=== PATIENT | female | born 1980 | race Caucasian/White ===

== ENCOUNTER 2019-07-27 15:25 | Outpatient (RCR) | payer BC, SELFPAY | END 2019-07-27 23:59 | disposition home or self-care (01) | LOC: ANHAUDIO 15:25 | DX: Z46.1 Encounter for fitting and adjustment of hearing aid (principal) | CPT/HCPCS: 99199 ==

== ENCOUNTER 2020-01-31 13:04 | Emergency (ER) | payer MEDICAID, SELFPAY ==
[2020-01-31 13:25] VITALS: BP 138/72; PULSE 64; RESP 18; TEMP 37.3; O2SAT 100
--- NOTE | 2020-01-31 13:29 | ED.GENADULT ---
HPI - General Adult General Chief complaint: Urogenital-Female Stated complaint: blood in urine Time Seen by Provider: 01/31/20 13:30 Source: patient and RN notes reviewed Mode of arrival: ambulatory Limitations: no limitations History of Present Illness HPI narrative: 39-year-old female presents with urinary complaints for day. Dysuria consist of hematuria, burning, frequency, and urgency.? Vitamin C and cranberry juice without relief.? History of UTI's. Denies fever or chills. No significant pelvic pain. No vaginal discharge.? No concerns for STDs. Exacerbating factors urinating.? Denies vaginal bleeding. Denies being , LMP 01/09/20.? No flank pain. Intermittent nausea without emesis, none at this time. Denies vomiting and abdominal pain.? Tolerating liquids well.? Remains active. The patient reports she have not been diagnosed with COVID-19. The patient reports she is not waiting for the results of a COVID-19 lab test. The patient reports she do not have fever, chills, weakness, fatigue, myalgia, or facial swelling. The patient reports she do not have a new or worsening cough or shortness of breath. Denies chest pain. The patient reports she do not have any rhinorrhea, congestion, sore throat, vomiting, abdominal pain, and diarrhea. Tolerating po intake well. Denies recent traveling. Denies concerns for COVID-19 or exposures been home since [id number] order except for essential household needs, working, and return home. At this time, patient is not suspected of having COVID-19. Some parts of this dictation were generated by voice recognition software and may contain typographical and/or grammatical inaccuracies. Related Data Home Medications Medication Instructions Recorded Confirmed tramadol 50 mg PO TID PRN 01/31/20 01/31/20 Allergies Allergy/AdvReac Type Severity Reaction Status Date / Time No Known Allergies Allergy Verified 01/31/20 13:24 Review of Systems Review of Systems: Narrative: CONSTITUTIONAL: Denies fever, chills, sweats. EYES: Denies visual changes, redness, discharge. ENT: Denies rhinorrhea, congestion, sore throat, otalgia. CARDIOVASCULAR: Denies chest pain, palpitations, edema. RESPIRATORY: Denies dyspnea, wheezing, cough. GASTROINTESTINAL: Denies abdominal pain, nausea, vomiting, diarrhea. GENITOURINARY: Complains of dysuria (burning, frequency, and urgency), hematuria. Denies abnormal discharge. SKIN: Denies rash or itching. MUSCULOSKELETAL: Denies acute back pain, joint pain, or myalgia. NEUROLOGIC: Denies numbness or focal weakness. PSYCHIATRIC: Denies anxiety or depression. All systems reviewed & are unremarkable except as noted in HPI and below. FORMERLY [facility], [facility] Past Medical History Medical History (Updated 01/31/20 @ 18:01 by IVY Espitia) delivery delivered Golfers elbow of right upper extremity Right shoulder tendinitis UTI (urinary tract infection) Surgical History Surgical History (Updated 01/31/20 @ 18:01 by IVY Espitia) H/O section Family History Family History (Updated 01/31/20 @ 18:01 by IVY Espitia) Father Carcinoma of colon Mother No problems noted. Social History Social History (Updated 01/31/20 @ 18:05 by IVY Espitia) Smoking status: Former smoker Smoking end date: 09/05/09 Alcohol intake: current Substance use: current Substance use type: marijuana Living arrangements: with family Occupation/Education: occupation Gender identity (if verbalized by the patient): Female Comments At time of signature, agree with nurse past medical, surgical, social, and family history.? There is patient's past medical history relevant to presenting complaint and no relevant family history pertinent to the presenting complaint. Exam Narrative: Exam Narrative: GENERAL: This is a well-nourished, well-developed patient, in no apparent distress.? Talks in full sentences an
== END 2020-01-31 13:44 | disposition home or self-care (01) ==
PROVIDERS: Emergency Provider Nurse Practitioner Family; PCP Nurse Practitioner
DX: R30.0 Dysuria (principal); Z87.891 Personal history of nicotine dependence; R03.0 Elevated blood-pressure reading, without diagnosis of hypertension
CPT/HCPCS: 81003; 87086; 87088; 99213; G0463

== ENCOUNTER 2020-02-24 10:39 | Outpatient (CLI) | payer MEDICAID, SELFPAY ==
--- NOTE | ~2020-02-24 | MR_ITS ---
EXAMINATION: MR shoulder RT wo con DATE: 02/24/2020 11:42 INDICATION: Impingement syndrome of the right shoulder presenting with right shoulder pain TECHNIQUE: Magnetic resonance imaging (MRI) of the right shoulder was performed without intravenous c ontrast. Sequences included axial PD-weighted FS FSE, coronal oblique PD-weighted FS FSE, coronal obl ique T2-weighted FS FSE, sagittal PD-weighted FS FSE, and sagittal T1-weighted SE. COMPARISON: None. FINDINGS: Coracoacromial arch: The acromion undersurface is flat in morphology (type I) with anterior downsloping. The coracoacromia l ligament is normal. Acromioclavicular joint is normal. Rotator cuff: Mild infraspinatus tendinopathy without discrete tear. The supraspinatus, teres minor and subscapular is tendons are normal. Normal rotator cuff muscle bulk and signal. Biceps tendon, glenoid labrum and glenohumeral cartilage: Long head of the biceps tendon is normal. 7 x 4 x 4 mm likely Labral cyst along the inferior labrum where there is a tiny focus of increased intrasubstance signal and subtle step-off at the peripheral bone chondral interface consistent with likely labral tear. The re are couple additional small likely paravertebral cyst along the anteroinferior glenoid labrum alth ough no discrete associated labral tears appreciated. Glenohumeral cartilage is normal. Fluid: Physiologic amount of fluid in the glenohumeral joint and biceps tendon sheath. No loose osteochondra l bodies. No abnormal fluid signal in the subacromial/subdeltoid bursa to suggest bursitis. Bones: Normal marrow signal with no edema, fracture or pathologic marrow replacing process. IMPRESSION: 1. A small tear at the inferior glenoid labrum with small para labral cysts along the inferior and an teroinferior glenoid. 2. Mild infraspinatus tendinopathy without discrete tear. Reviewed, dictated and finalized at location A. IMPRESSION: 1. A small tear at the inferior glenoid labrum with small para labral cysts mariano ng the inferior and anteroinferior glenoid. 2. Mild infraspinatus tendinopathy without discrete tear.
== END 2020-02-24 10:40 | disposition home or self-care (01) ==
PROVIDERS: PCP Nurse Practitioner; Visit Provider Orthopaedic Surgery
DX: M75.41 Impingement syndrome of right shoulder (principal); S43.431A Superior glenoid labrum lesion of right shoulder, initial encounter; X58.XXXA Exposure to other specified factors, initial encounter
CPT/HCPCS: 73221

== ENCOUNTER 2021-06-22 09:13 | Emergency (ER) | payer OTHER, SELFPAY ==
[2021-06-22 09:26] VITALS: BP 136/85; PULSE 61; RESP 20; TEMP 37; O2SAT 100
--- NOTE | 2021-06-22 10:00 | ED.SKABFB ---
HPI - Skin/Abscess/Foreign Bdy General Chief complaint: Skin/Abscess/Foreign Body Stated complaint: Bug bite Time Seen by Provider: 06/22/21 10:00 Source: patient and RN notes reviewed Mode of arrival: ambulatory Limitations: no limitations History of Present Illness HPI narrative: 40-year-old female presents concern for a red area on her right thigh. She is not sure if she was bit by a bug or what caused the area. Reports it ly and stings. She denies body aches, chills, sweats, fever. Denies any other rash in any other area of her body. Reports history of staph infections. MD complaint: insect bite/sting Related Data Home Medications Medication Instructions Recorded Confirmed tramadol 50 mg PO TID PRN 01/31/20 01/31/20 Allergies Allergy/AdvReac Type Severity Reaction Status Date / Time No Known Allergies Allergy Verified 01/31/20 13:24 Review of Systems Review of Systems: Proximal CONSTITUTIONAL: Denies malaise, chills, sweats, or fever. CARDIOVASCULAR: Denies chest pain, palpitations, or edema. RESPIRATORY: Denies cough or dyspnea. SKIN: Reports red raised stinging burning area on her right thigh MUSCULOSKELETAL: Denies myalgia. All systems reviewed & are unremarkable except as noted in HPI and below PMFSH Past Medical History Medical History (Updated 06/22/21 @ 10:09 by Shellie Chu NP) delivery delivered Golfers elbow of right upper extremity Right shoulder tendinitis UTI (urinary tract infection) Surgical History Surgical History (Updated 01/31/20 @ 18:01 by IVY Espitia) H/O section Family History Family History (Updated 01/31/20 @ 18:01 by IVY Espitia) Father Carcinoma of colon Mother No problems noted. Social History Social History (Updated 01/31/20 @ 18:05 by IVY Espitia) Smoking status: Former smoker Smoking end date: 09/05/09 Alcohol intake: current Substance use: current Substance use type: marijuana Gender identity (if verbalized by the patient): Female Comments At time of signature, agree with nursing past medical, surgical, social and family history. There is no relevant family history pertinent to the presenting complaint Exam Narrative: GENERAL: Well-appearing, well-nourished, and in no acute distress. HEAD: Normocephalic, atraumatic. EYES: PERRLA, conjunctivae clear ENT: Mucous membranes moist. NECK: Supple. No lymphadenopathy CHEST: Clear to auscultation. No respiratory distress. HEART: Regular rate and rhythm. SKIN: Warm, dry. 8 cm diameter raised erythematous area with a cluster of blisters in the center noted to the right thigh NEURO: Alert and oriented x3. PSYCH: Normal mood and affect Course Course Emergency Course: Patient is aware of diagnosis, understands and agrees to treatment plan. Anticipatory guidance given. Patient agrees to follow-up as directed and is aware of reasons to seek care at the emergency department. Portions of this record may have been created with voice recognition software Vital Signs Vital signs: Vital Signs Temperature 98.6 F 06/22/21 09:26 Pulse Rate 61 06/22/21 09:26 Respiratory Rate 20 06/22/21 09:26 Blood Pressure 136/85 06/22/21 09:26 Pulse Oximetry 100 06/22/21 09:26 Temperature 98.6 F 06/22/21 09:26 Pulse Rate 61 06/22/21 09:26 Respiratory Rate 20 06/22/21 09:26 Blood Pressure 136/85 06/22/21 09:26 Pulse Oximetry 100 06/22/21 09:26 Reviewed. MDM - Skin/Abscess/Foreign Bdy MDM Narrative Medical decision making narrative: Exam findings show no acute concerns or changes; patient is non-toxic appearing and is in no distress. Patient is appropriate for outpatient treatment and follow-up. Differential Diagnosis Differential diagnosis: Likely abscess of skin or subcutaneous tissue, herpes zoster, allergic reaction to drug, cellulitis, eczema, insect bites, impetigo and contact dermatitis Cr
== END 2021-06-22 10:18 | disposition home or self-care (01) ==
PROVIDERS: Emergency Provider Nurse Practitioner; PCP Family Medicine
DX: L08.9 Local infection of the skin and subcutaneous tissue, unspecified (principal); B96.89 Other specified bacterial agents as the cause of diseases classified elsewhere; Z87.891 Personal history of nicotine dependence
CPT/HCPCS: 99213; G0463

== ENCOUNTER 2021-11-04 09:32 | Outpatient (RCR) | payer OTHER, SELFPAY | END 2021-11-04 23:59 | disposition home or self-care (01) | LOC: ANHAUDIO 09:32 | PROVIDERS: PCP Family Medicine; Visit Provider Family Medicine | DX: Z46.1 Encounter for fitting and adjustment of hearing aid (principal) | CPT/HCPCS: 99199 ==

== ENCOUNTER 2022-01-05 13:04 | Outpatient (CLI) | payer OTHER, SELFPAY | END 2022-01-05 13:05 | disposition home or self-care (01) | PROVIDERS: PCP Family Medicine; Visit Provider Family Medicine | DX: H91.93 Unspecified hearing loss, bilateral (principal) | CPT/HCPCS: 92557; 92567 ==

== ENCOUNTER 2022-02-05 10:36 | Emergency (ER) | payer OTHER, SELFPAY ==
--- NOTE | 2022-02-05 10:39 | ED.URI ---
HPI - URI/Sore Throat General Chief Complaint: Upper Respiratory Infection Stated Complaint: sinus issues Time Seen by Provider: 02/05/22 10:39 Source: patient and RN notes reviewed History of Present Illness HPI Narrative: Patient is a 41-year-old female who presents the urgent care with complaints of sinus congestion. Patient denies of cough, sore throat, fever, nausea or vomiting. Patient has been taking Norma and Flonase and states that her symptoms have gotten much better. Patient states that she has had it for approximately 1 week. Patient takes COVID test at work and all have been negative. No other acute complaints. No acute distress noted. Patient aware of the plan of care. Some parts of this dictation were generated by voice recognition software and may contain typographical and/or grammatical inaccuracies. Related Data Home Medications Medication Instructions Recorded Confirmed duloxetine 60 mg capsule,delayed 1 cap PO DAILY 02/05/22 02/05/22 release methocarbamol 500 mg tablet 1 tablet PO TID 02/05/22 02/05/22 Allergies Allergy/AdvReac Type Severity Reaction Status Date / Time No Known Allergies Allergy Verified 02/05/22 10:56 Review of Systems Review of Systems: CONSTITUTIONAL: Denies fever, chills, or sweats. EYES: Denies visual changes, redness, or discharge. ENT: Reports of sinus congestion CARDIOVASCULAR: Denies chest pain, palpitations, or edema. RESPIRATORY: Denies cough or dyspnea. GASTROINTESTINAL: Denies abdominal pain, nausea, vomiting, or diarrhea. GENITOURINARY: Denies dysuria or hematuria. SKIN: Denies rash or itching. MUSCULOSKELETAL: Denies back pain, joint pain, or myalgia. NEUROLOGIC: Denies headache, numbness, or weakness. All other systems reviewed are negative, except as documented in HPI. FORMERLY [facility] Past Medical History Medical History (Updated 02/05/22 @ 11:03 by IVY Montez) delivery delivered Golfers elbow of right upper extremity Right shoulder tendinitis UTI (urinary tract infection) Surgical History Surgical History (Updated 01/31/20 @ 18:01 by IVY Espitia) H/O section Family History Family History (Updated 01/31/20 @ 18:01 by IVY Espitia) Father Carcinoma of colon Mother No problems noted. Social History Social History (Updated 01/31/20 @ 18:05 by IVY Espitia) Smoking status: Former smoker Smoking end date: 09/05/09 Alcohol intake: current Substance use: current Substance use type: marijuana Gender identity (if verbalized by the patient): Female Comments At the time of my signature, I reviewed and agree with the nursing past medical, surgical, social, and family history. There is no relevant family history pertinent to the patient complaint. Exam Narrative: GENERAL: This is a well-nourished, well-developed patient, in no apparent distress. HEAD: normocephalic, atraumatic. Frontal sinus tenderness EYES: PERRL. Sclera clear/white. Vision is grossly intact. EARS: External ears normal, auditory canals clear and without drainage, TMs normal without perforation. Hearing grossly intact. NOSE: External nose normal with no obvious nasal discharge, nares without redness, no rhinorrhea. THROAT: Mucous membranes moist, posterior pharynx clear. Moderate postnasal drainage NECK: Neck supple CARDIOVASCULAR: Regular rate and rhythm without murmurs, gallops, or rubs. RESPIRATORY: Clear to auscultation. Breath sounds equal bilaterally. No wheezes, rales, or rhonchi. SKIN: warm, intact with no suspicious lesions or rash, good texture and turgor. NEURO: awake, alert, and oriented to person, place and time. There were no obvious focal neurologic abnormalities. EXTREMITIES: No clubbing, cyanosis, or edema. Course Course Level of Care: Express Care Visit Vital Signs Vital signs: Vital Signs Temperature 98.6 F 02/05/22 10:46 Pulse Rate 73 02/05/22 10:46 Res
[2022-02-05 10:46] VITALS: BP 133/79; PULSE 73; RESP 14; TEMP 37; O2SAT 99
== END 2022-02-05 11:05 | disposition home or self-care (01) ==
PROVIDERS: Emergency Provider Nurse Practitioner Family; PCP Family Medicine
DX: J32.9 Chronic sinusitis, unspecified (principal); Z87.891 Personal history of nicotine dependence
CPT/HCPCS: 99211; G0463

== ENCOUNTER 2022-02-09 07:30 | Outpatient (RCR) | payer OTHER, SELFPAY | END 2022-04-19 23:59 | disposition home or self-care (01) | LOC: ANHBWCAUD 07:30 | PROVIDERS: PCP Family Medicine; Visit Provider Family Medicine | DX: Z46.1 Encounter for fitting and adjustment of hearing aid (principal) | CPT/HCPCS: 99199; V5160; V5261 ==

== ENCOUNTER 2023-01-04 11:30 | Outpatient (RCR) | payer OTHER, SELFPAY | END 2023-03-07 23:59 | disposition home or self-care (01) | LOC: ANHBWCAUD 11:30 | PROVIDERS: PCP Family Medicine; Visit Provider Family Medicine | DX: Z46.1 Encounter for fitting and adjustment of hearing aid (principal) | CPT/HCPCS: 99199 ==

== ENCOUNTER 2023-04-14 18:21 | Emergency (ER) | payer OTHER, SELFPAY ==
--- NOTE | 2023-04-14 18:36 | ED.WOUNDLAC ---
HPI - Wound/Laceration General Chief Complaint: Skin/Abscess/Foreign Body Stated Complaint: Laceration to Finger Time Seen by Provider: 04/14/23 18:36 Source: patient, RN notes reviewed and old records reviewed Mode of arrival: ambulatory Limitations: no limitations History of Present Illness HPI narrative: 42-year-old female presents to the [facility] with complaints of a laceration to her finger. Bleedings controlled. States that she was at work using a box tender when it cut her finger. Wrapped it with gauze and tape. Happened 2-3 hours prior to arrival Unknown last tetanus Related Data Home Medications Medication Instructions Recorded Confirmed duloxetine 60 mg capsule,delayed 1 cap PO DAILY 02/05/22 02/05/22 release methocarbamol 500 mg tablet 1 tablet PO TID 02/05/22 02/05/22 amitriptyline 10 mg tablet mg 04/14/23 [id number] tablet 04/14/23 50 mg-325 mg-40 mg tablet celecoxib 200 mg capsule mg 04/14/23 duloxetine 30 mg capsule,delayed mg PO 04/14/23 release levothyroxine 25 mcg tablet mcg 04/14/23 pregabalin 100 mg capsule mg 04/14/23 pregabalin 150 mg capsule mg 04/14/23 rosuvastatin 10 mg tablet mg 04/14/23 Allergies Allergy/AdvReac Type Severity Reaction Status Date / Time No Known Allergies Allergy Verified 04/14/23 18:45 Review of Systems Review of Systems: All systems reviewed & are unremarkable except as noted in HPI and below Constitutional: Constitutional: Reports no additional constitutional complaints Eyes: Eyes: Reports no additional eye complaints ENT: Reports system reviewed and no additional complaints, except as documented Cardiovascular: Cardiovascular: Reports no additional cardiovascular complaints, Denies chest pain and Denies dyspnea Respiratory: Respiratory: Reports no additional respiratory complaints, Denies chest congestion, Denies cough and Denies dyspnea Gastrointestinal: Gastrointestinal: Reports no additional gastrointestinal complaints, Denies abdominal pain, Denies nausea and Denies vomiting Musculoskeletal: Musculoskeletal: Reports no additional musculoskeletal complaints Integumentary/Breasts: Skin/Breast: Reports as per HPI Neurologic: Reports system reviewed and no additional complaints, except as documented Psychiatric: Psychiatric: Reports no additional psychiatric complaints Allergic/Immunologic: Allergic/Immunologic: Reports no additional allergic/immunologic complaints [facility] Past Medical History Medical History delivery delivered Golfers elbow of right upper extremity Right shoulder tendinitis UTI (urinary tract infection) Surgical History Surgical History H/O section Family History Family History Father Carcinoma of colon Mother No problems noted. Social History Social History Smoking status: Former smoker Smoking end date: 09/05/09 Alcohol intake: current Substance use: current Substance use type: marijuana Living arrangements: with family Occupation/Education: occupation Gender identity (if verbalized by the patient): Female Comments At the time of my signature, I reviewed and agree with the nursing past medical, surgical, social, and family history. There is no relevant family history pertinent to the patient complaint. Exam Const: General: cooperative, healthy appearing, comfortable, no acute distress, well developed, alert and well nourished Nutritional Appearance: well nourished Orientation/consciousness: patient oriented x3 Limitations: no limitations HENMT: Head: normal to inspection Ears: hearing grossly normal bilaterally and external ears normal Face/Nose/Sinus: Normal external nose present, Normal nares present, Norm
[2023-04-14] MEDS: TETANUS,DIPHTHERIA,AC PERTUSSIS ADULT (0.5 ML) BOOSTRIX IM (18:50)
[2023-04-14 19:01] VITALS: BP 130/74; PULSE 73; RESP 18; TEMP 36.8; O2SAT 100
== END 2023-04-14 19:15 | disposition home or self-care (01) ==
PROVIDERS: Emergency Provider Nurse Practitioner; PCP Family Medicine
DX: S61.211A Laceration without foreign body of left index finger without damage to nail, initial encounter (principal); W26.8XXA Contact with other sharp object(s), not elsewhere classified, initial encounter; Z23 Encounter for immunization; Z87.890 Personal history of sex reassignment; F12.90 Cannabis use, unspecified, uncomplicated
CPT/HCPCS: 12001; 90471; 90715; 99212; G0463

== ENCOUNTER 2024-06-26 13:01 | Outpatient (CLI) | payer OTHER, SELFPAY | END 2024-06-26 13:02 | disposition home or self-care (01) | LOC: ANHBWCAUD 13:01 | PROVIDERS: PCP Family Medicine; Visit Provider Student in an Organized Health Care Education/Training Program | DX: H90.3 Sensorineural hearing loss, bilateral (principal) | CPT/HCPCS: 92557 ==

== ENCOUNTER 2024-07-19 14:00 | Emergency (ER) | payer OTHER, SELFPAY ==
--- NOTE | ~2024-07-19 | XR_ITS ---
EXAMINATION: XR wrist RT min 3V DATE: 07/19/2024 15:09 INDICATION: Right wrist pain. TECHNIQUE: 4 views of right wrist were obtained. COMPARISON: None. FINDINGS: Alignment is normal. No fracture. Joint spaces are normal. IMPRESSION: 1. Normal right wrist. Reviewed, dictated and finalized at location A. OFFICIAL IMPRESSION: 1. Normal right wrist.
[2024-07-19 14:12] VITALS: BP 152/92; PULSE 77; RESP 18; TEMP 36.4; O2SAT 100
--- NOTE | 2024-07-19 15:05 | ED.GENADULT ---
HPI - General Adult General Chief complaint: Extremity Injury, Upper Stated complaint: Right Wrist Pain Source: patient, RN notes reviewed and old records reviewed Mode of arrival: ambulatory Limitations: no limitations History of Present Illness HPI narrative: 43-year-old female to Express Care with complaint of right lateral wrist pain for 3 weeks that is worse with activity. Patient endorses history of fibromyalgia and fibro fog that affects her memory, so she cannot confirm with certainty that she did not injure it. patient states that she works at [employer] 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 Patient reports wearing elastic brace without improvement. Patient denies numbness, tingling, decreased ROM. Patient resting comfortably in exam room in no acute distress. Related Data Home Medications Medication Instructions Recorded Confirmed duloxetine 60 mg capsule,delayed 1 cap PO DAILY 02/05/22 02/05/22 release methocarbamol 500 mg tablet 1 tablet PO TID 02/05/22 02/05/22 amitriptyline 10 mg tablet mg 04/14/23 qdgnehaqam-pbxsjokankuvz-gsdclezr tablet 04/14/23 50 mg-325 mg-40 mg tablet celecoxib 200 mg capsule mg 04/14/23 duloxetine 30 mg capsule,delayed mg PO 04/14/23 release levothyroxine 25 mcg tablet mcg 04/14/23 pregabalin 100 mg capsule mg 04/14/23 pregabalin 150 mg capsule mg 04/14/23 rosuvastatin 10 mg tablet mg 04/14/23 Allergies Allergy/AdvReac Type Severity Reaction Status Date / Time No Known Allergies Allergy Verified 04/14/23 18:45 Review of Systems Review of Systems: All systems reviewed & are unremarkable except as noted in HPI and below Constitutional: Constitutional: Reports no additional constitutional complaints Eyes: Eyes: Reports no additional eye complaints ENT: Reports system reviewed and no additional complaints, except as documented Cardiovascular: Cardiovascular: Reports no additional cardiovascular complaints, Denies chest pain and Denies dyspnea Respiratory: Respiratory: Reports no additional respiratory complaints, Denies cough and Denies dyspnea Musculoskeletal: Musculoskeletal: Reports as per HPI and Reports arthralgias ( Right wrist) Neurologic: Reports system reviewed and no additional complaints, except as documented Psychiatric: Psychiatric: Reports no additional psychiatric complaints PMFSH Past Medical History Medical History delivery delivered Golfers elbow of right upper extremity Right shoulder tendinitis UTI (urinary tract infection) Surgical History Surgical History H/O section Family History Family History Father Carcinoma of colon Mother No problems noted. Social History Social History Smoking status: Former smoker Smoking end date: 09/05/09 Alcohol intake: current Substance use: current Substance use type: marijuana Living arrangements: with family Occupation/Education: occupation Gender identity (if verbalized by the patient): Female Comments At the time of my signature, I reviewed and agree with the nursing past medical, surgical, social, and family history. There is no relevant family history pertinent to the patient complaint. Exam Const: General: cooperative, comfortable, no acute distress, well developed, alert, well groomed and well nourished Nutritional Appearance: well nourished Orientation/consciousness: patient oriented x3 Limitations: no limitations HENMT: Head: normal to inspection Ears: external ears normal Face/Nose/Sinus: Normal external nose present, Normal nares present, normal facial exam, No erythema and No edema Face and sinus: normal facial exam, no erythema and no edema Mouth: Yes Normal oral and palatal mucosa present Eyes: General: appearance normal, both eyes and all related structures Neck: Neck: normal visual inspection, full ROM and no meningeal signs Lymphatic: no lymphadenopathy noted and no lymphedema noted Chest: Chest palpation & inspection: normal inspection of the chest Resp: Effort & Inspection: normal respiratory effort and able to speak in complete sentences Auscultation: clear to auscultation bilaterally Cardio: Jugular venous distension: no JVD Rate: regular rate Rhythm: regular rhythm Back/Spine/Pelvis: Cervical Spine: cervical ROM normal Skin: General skin exam: normal color, no rashes or lesions noted and turgor normal Neuro: General: patient oriented x3, gait normal, moves all extremities and no meningeal signs Speech: normal speech Gait exam (Neuro): Normal gait present Extrem: General: full ROM and capillary refill normal Right upper extremity: full ROM, normal capillary refill and wrist tenderness, abnormal ROM pain with active ROM during, normal vascular exam, normal James's test, Tinel's negative and Phalen's negative; no swelling, no unusual warmth, no abrasions, no lacerations, no ecchymosis, no crepitus and no deformity; no edema and joint enlargement noted Psych: Appearance: grossly normal and well kempt Course Course Emergency Course: Some parts of this dictation were generated by voice recognition software and may contain typographical and/or grammatical inaccuracies. Level of Care: Express Care Visit Vital Signs Vital signs: Vital Signs Temperature 36.4 C 07/19/24 14:12 Pulse Rate 77 07/19/24 14:12 Respiratory Rate 18 07/19/24 14:12 Blood Pressure 152/92 H 07/19/24 14:12 Pulse Oximetry 100 07/19/24 14:12 Temperature 36.4 C 07/19/24 14:12 Pulse Rate 77 07/19/24 14:12 Respiratory Rate 18 07/19/24 14:12 Blood Pressure 152/92 H 07/19/24 14:12 Pulse Oximetry 100 07/19/24 14:12 reviewed Medical Decision Making MDM Narrative Medical decision making narrative: 43-year-old female to Express Care with complaint of right lateral wrist pain for 3 weeks that is worse with activity. Patient endorses history of fibromyalgia and fibro fog that affects her memory, so she cannot confirm with certainty that she did not injure it. patient states that she works at [employer] 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 Patient reports wearing elastic brace without improvement. Patient denies numbness, tingling, decreased ROM. Patient resting comfortably in exam room in no acute distress. Patient is sitting comfortably in exam room nontoxic in appearance. On exam, pain with active range of motion. Tenderness with palpation of lateral wrist. Exam otherwise unremarkable. radiology negative for acute findings in clinic. Patient appropriate for outpatient treatment and follow-up. Discharge instructions reviewed with patient, as well as provided in writing per nursing staff. The instructions also include specific and strict return/GO TO THE ER as well as f/u information. All questions have been answered, and the patient deny any further questions with discharge and discharge plan. Some parts of this dictation were generated by voice recognition software and may contain typographical and/or grammatical inaccuracies. Differential Diagnosis Differential Diagnosis: wrist pain, wrist sprain / strain, wrist fracture Vital Signs Vital Signs: Vital Signs Temperature 36.4 C 07/19/24 14:12 Pulse Rate 77 07/19/24 14:12 Respiratory Rate 18 07/19/24 14:12 Blood Pressure 152/92 H 07/19/24 14:12 Pulse Oximetry 100 07/19/24 14:12 Temperature 36.4 C 07/19/24 14:12 Pulse Rate 77 07/19/24 14:12 Respiratory Rate 18 07/19/24 14:12 Blood Pressure 152/92 H 07/19/24 14:12 Pulse Oximetry 100 07/19/24 14:12 Discharge Plan Discharge Clinical Impression: Right wrist pain Patient Disposition: Home, Self-Care Condition: Stable Instructions: P.R.I.C.E. Treatment (ED) Additional Instructions: please review attached instructions regarding herrera treatment and implement suggestions as tolerated for new or worsening symptoms please go directly to the emergency department Prescriptions: No Action duloxetine 60 mg capsule,delayed release(DR/EC) 1 cap PO DAILY methocarbamol 500 mg tablet 1 tablet PO TID celecoxib 200 mg capsule joueumpqic-drjfnfuddvqmv-etnc 50-325-40 mg tablet levothyroxine 25 mcg tablet amitriptyline 10 mg tablet rosuvastatin 10 mg tablet duloxetine 30 mg capsule,delayed release(DR/EC) PO pregabalin 100 mg capsule pregabalin 150 mg capsule Follow-up/Referrals: PHYSICIAN NOT ON STAFF,NONSTAFF [Primary Care Provider] - Stand Alone Forms: Work/School Release IP
== END 2024-07-19 15:50 | disposition home or self-care (01) ==
PROVIDERS: Emergency Provider Nurse Practitioner Family
DX: M25.531 Pain in right wrist (principal); Z87.891 Personal history of nicotine dependence
CPT/HCPCS: 73110; 99213; G0463